=== PATIENT | male | born 1985 | race Two or more races ===

== ENCOUNTER 2025-08-24 07:01 | Day surgery (SDC) | payer BC ==
[~2025-08-24] VITALS: Ht 167.6 cm; Wt 86.2 kg
[~2025-08-24 07:01] MED LIST: BUPIVACAINE 0.25% INJ 50ML VIAL ONE; GLYCOPYRROLATE 0.2 MG/ML 1ML VIAL ONE; KETAMINE 50mg/ML 1ml syringe ONE; KETOROLAC TROMETH 30 MG/ML 1ML VIAL ONE; LIDOCAINE 2% (LOCAL ANESTH.) PF 5ml SDV ONE; ONDANSETRON HCL 4 MG/2 ML VIAL ONE; PROPOFOL 10 MG/ML 20 ML IV ONE; ROCURONIUM 10MG/ML 10ML VIAL IV ONE; SUGAMMADEX 200mg/2ml Vial (100MG/ML) IV ONE; fentaNYL CITRATE 100 MCG/2 ML VL ONE
[2025-08-24] MEDS ORDERED: [UNRECOGNIZED DRUG - OTHER] IV ONE (07:02)
[2025-08-24] MEDS ORDERED: CEFAZOLIN IV ONE (07:02)
[2025-08-24] MEDS ORDERED: GABAPENTIN 300 MG CAP ONE (07:38)
[2025-08-24] MEDS ORDERED: ACETAMINOPHEN IV 100 ML IV ONE (07:38)
[2025-08-24] MEDS ORDERED: CELECOXIB 100 MG CAP ONE (07:38)
[2025-08-24] MEDS: ACETAMINOPHEN IV 1000 MG/100ML (10MG/ML) IV ONE (07:45)
[2025-08-24] MEDS: GABAPENTIN 300 MG CAP PO ONE (08:05)
[2025-08-24] MEDS: CELECOXIB 100 MG CAP PO ONE (08:05)
[2025-08-24] MEDS: BUPIVACAINE 0.25% INJ 50ML VIAL ONE (08:48)
[2025-08-24 09:27] VITALS: PULSE 76; RESP 14; TEMP 98; O2SAT 100
--- NOTE | 2025-08-24 09:41 | DVHOP2 ---
Operative Report [id number] UMBILICAL HERNIA LESS THAN 3 CMS OPEN REPAIR UMBILICAL HERNIA WITH MESH EBL 10 CC NO DRAINS NO COMPLICATIONS STABLE RECOVERY ROOM CLEARED FOR DISCHARGE INSTRUCTIONS RE DIET ACTIVITY F/UP GIVEN ABD SAM ACOSTA MD Aug 24, 2025 09:41
[2025-08-24] MEDS ORDERED: ONDANSETRON HCL 4 MG/2 ML VIAL ONE (09:42)
[2025-08-24] MEDS ORDERED: HYDROmorphone HCL 2 MG/ML VL/or syr ONE (09:44)
[2025-08-24] MEDS ORDERED: NALOXONE HCL 0.4 MG/ML VIAL IV PRN (09:45)
[2025-08-24] MEDS: ONDANSETRON HCL 4 MG/2 ML VIAL IV PRN (09:45)
[2025-08-24] MEDS ORDERED: fentaNYL CITRATE 100 MCG/2 ML VL IV PRN (09:45)
[2025-08-24] MEDS ORDERED: hydrALAZINE HCL 20 MG/ML VL IV PRN (09:45)
[2025-08-24] MEDS ORDERED: FLUMAZENIL 0.1 MG/ML INJ 10ML MDV IV PRN (09:45)
[2025-08-24] MEDS: HYDROmorphone HCL 2 MG/ML VL/or syr IV PRN (09:55)
[2025-08-24] MEDS ORDERED: METOCLOPRAMIDE HCL 5MG/ml INJ 2ml VIAL ONE (10:25)
[2025-08-24] MEDS: METOCLOPRAMIDE HCL 5MG/ml INJ 2ml VIAL IV ONE (10:30)
[2025-08-24] MEDS: PROCHLORPERAZINE EDISYLATE 5 MG/ML 2ML VIAL IV ONE (10:40)
[2025-08-24 10:47] VITALS: BP 118/79; PULSE 77; RESP 18; O2SAT 95
--- NOTE | 2025-08-24 22:54 | DVHOP ---
DATE OF SURGERY: 08/24/2025 DATE OF SURGERY: 08/24/2025 PREOPERATIVE DIAGNOSIS: Umbilical hernia. POSTOPERATIVE DIAGNOSIS: Umbilical hernia. PROCEDURE: Open repair of umbilical hernia measuring less than 3 cm, non-incarcerated, non-strangulated, and open repair of this hernia with mesh. SURGEON: Singh Ralph MD EEO OFFICER: None. ANESTHESIA: General. ESTIMATED BLOOD LOSS: Close to 10 mL. DRAINS: No drains were used. COMPLICATIONS: No complications were encountered. DESCRIPTION OF PROCEDURE: The patient was prepped and draped in the usual sterile fashion in the supine position. A curved infraumbilical incision was applied starting from the right side to the left side and was taken down to the deeper tissues. The umbilicus was detached. The hernia ring was identified. The contents were reduced back into the abdomen. The fascia was exposed on all sides, and a small size of Ventralex mesh was introduced pre-peritoneally and secured in place using Prolene suture in all 4 quadrants. The strings of the mesh were detached. The hernia repair was reinforced with Vicryl suture at various locations in a transverse fashion after the fascial edges were brought together using Prolene suture as well, and then the umbilicus was reconstructed using the Vicryl suture in interrupted fashion. Irrigation was performed. Hemostasis was secured, and closure was done using Vicryl suture with the subcutaneous tissues and 3-0 Monocryl suture for the skin closure in a subcuticular fashion. Surgical glue was applied. Steri-Strips were applied. Dressing was applied. The patient tolerated the procedure well and was taken back to the recovery room in stable condition. MD DIMITRI Avalos/SUL TID: [id number] RECEIPT: [id number] cc: Angelica Young MD
== END 2025-08-24 10:57 | disposition home or self-care (01) ==
LOC: SUR 07:01
PROVIDERS: ATTEND Surgery
DX: K42.9 Umbilical hernia without obstruction or gangrene (principal); Z79.899 Other long term (current) drug therapy; Z98.890 Other specified postprocedural states
CPT/HCPCS: 49591; 86850; 86900; 86901; C1781; J0169; J0780; J1100; J1171; J1885; J2003; J2405; J2704; J2765; J0131; J3490